=== PATIENT | female | born 1970 | race Hispanic/Latino ===

== ENCOUNTER 2024-03-07 11:27 | Emergency (ER) | payer OTHER, BC ==
[~2024-03-07] VITALS: Ht 154.9 cm; Wt 72.6 kg
[2024-03-07 12:12] LABS: BASOPHILS # (AUTO) 0.05 K/uL (0.00-0.20); BASOPHILS % (AUTO) 0.5 % (0.0-5.0); EOSINOPHILS # (AUTO) 0.26 K/uL (0.00-0.70); EOSINOPHILS % (AUTO) 2.8 % (0.0-8.0); HEMATOCRIT 37.7 % (36-48); IMMATURE GRANULOCYTE ABSOLUTE 0.02 K/uL (0-1); LYMPHOCYTES # (AUTO) 2.6 K/uL (1.0-4.8); LYMPHOCYTES % (AUTO) 27.6 % (21.0-51.0); MEAN CORPUSCULAR HEMOGLOBIN 20.3 pg (27.0-33.0); MEAN CORPUSCULAR HGB CONC 31.3 g/dL (32.0-36.0); MEAN CORPUSCULAR VOLUME 64.8 fL (79-99); MONOCYTES # (AUTO) 0.5 K/uL (0.1-1.0); MONOCYTES % (AUTO) 5.1 % (3.0-13.0); NEUTROPHILS % (AUTO) 63.8 % (40.0-77.0); PLATELET COUNT (AUTO) 362 K/uL (130-400); RED BLOOD CELL COUNT(AUTO) 5.82 MIL/uL (4.00-5.50); RED CELL DISTRIBUTION WIDTH 15.9 % (11.0-15.5); WHITE BLOOD COUNT (AUTO) 9.4 K/uL (4.8-10.8)
[2024-03-07 12:24] LABS: BILIRUBIN,TOTAL 0.6 mg/dL (0.2-1.0); CREATININE 0.5 mg/dL (0.5-1.0); POTASSIUM 3.3 mmol/L (3.5-5.1); TOTAL PROTEIN, SERUM 8.4 g/dL (6.0-8.3)
[2024-03-07 12:59] LABS: HCG,QUALITATIVE URINE NEGATIVE (NEGATIVE)
[2024-03-07 13:56] LABS: APPEARANCE,URINE TURBID (CLEAR); BILIRUBIN,URINE SMALL mg/dL (NEGATIVE); COLOR,URINE RED (YELLOW); GLUCOSE, URINE (UA) 100 mg/dL (NEGATIVE); KETONES,URINE 5 mg/dL (NEGATIVE); LEUKOCYTE ESTERASE ,URINE TRACE Leu/uL (NEGATIVE); NITRATE,URINE POSITIVE (NEGATIVE); OCCULT BLOOD,URINE LARGE (NEGATIVE); PH,URINE 6.5 (5.0-8.0); PROTEIN,URINE >=300 mg/dL (NEGATIVE)
[2024-03-07 13:57] LABS: ADD UA MICROSCOPIC YES; RBC,URINE TNTC /HPF (0-1)
[2024-03-07 14:03] LABS: WBC,URINE 26-50 /HPF (0-1)
[2024-03-07 14:04] LABS: BACTERIA,URINE Few /HPF (None Seen)
[2024-03-07] MEDS: ONDANSETRON 4MG INJ IVP ONE (14:19)
[2024-03-07] MEDS: CEFTRIAXONE 1G VIAL IVPB ONE (14:19)
[2024-03-07] MEDS: MORPHINE 2 MG SYG IVP ONE (14:19)
[2024-03-07] MEDS ORDERED: MEDR10TA PO (14:53)
[2024-03-07] MEDS ORDERED: CEPH500B PO (14:54)
[2024-03-07] MEDS: MEDROXYPROGESTERONE ACET 5 MG TAB PO STA (15:04)
[2024-03-07 16:15] VITALS: BP 129/87; PULSE 80; RESP 20; O2SAT 98
== END 2024-03-07 16:16 | disposition home or self-care (01) ==
LOC: EDH 11:27
DX: N94.6 Dysmenorrhea, unspecified (principal); N39.0 Urinary tract infection, site not specified
CPT/HCPCS: 99285; 96374; 76856; 96375; 80053; 83690; 85025; 87086; 81001; 81025; 36415; J2270; J0696; J2405